=== PATIENT | female | born 1990 | race Two or more races ===

== ENCOUNTER 2020-05-18 13:48 | Emergency (ER) | payer OTHER ==
[~2020-05-18] VITALS: Ht 157.5 cm; Wt 64.0 kg
[2020-05-18 15:36] LABS: BILIRUBIN,URINE NEGATIVE (NEG); CLARITY,URINE CLEAR; COLOR,URINE YELLOW; NITRITE,URINE NEGATIVE (NEG); PROTEIN,URINE NEGATIVE (NEG-TRACE); UROBILINOGEN,URINE 0.2 mg/dL (0.2 mg/dL)
[2020-05-18 15:42] LABS: BARBITURATES NEG (NEG); BENZODIAZEPINES NEG (NEG); CANNABINOIDS NEG (NEG); COCAINE NEG (NEG); METHADONE NEG (NEG); OPIATES NEG (NEG); PHENCYCLIDINE NEG (NEG)
[2020-05-18 15:46] LABS: AMPHETAMINE/METHAMPHETAMINE NEG (NEG)
[2020-05-18 15:52] LABS: BACTERIA,URINE FEW /HPF (0-FEW); WBC,URINE 0 /HPF (0-4)
[2020-05-18 15:58] LABS: BASO % 1 % (0-3); EOS # 0.2 x10^3/uL (0.0-0.7); EOS % 3 % (0-3); HEMATOCRIT 42.4 % (36.0-47.0); HEMOGLOBIN 14.1 g/dL (12.0-15.5); LYMPH # 1.4 x10^3/uL (1.0-4.8); LYMPH % 14 % (24-48); MEAN CORPUSCULAR HEMOGLOBIN 29 pg (25-35); MEAN CORPUSCULAR HGB CONC 33 g/dL (31-37); MEAN CORPUSCULAR VOLUME 86 fL (79-100); MONO # 0.6 x10^3/uL (0.0-1.1); MONO % 6 % (0-9); NEUT # 7.3 x10^3/uL (1.8-7.7); NEUT % 77 % (31-73); PLATELET COUNT 329 x10^3/uL (140-400); RED BLOOD COUNT 4.91 x10^6/uL (3.50-5.40); RED CELL DISTRIBUTION WIDTH 13.6 % (11.5-14.5); WHITE BLOOD COUNT 9.5 x10^3/uL (4.0-11.0)
--- NOTE | 2020-05-18 16:03 | RAD ---
COMPLETE ABDOMINAL ULTRASOUND Clinical History: Reason: abd pain / Spl. Instructions: / History: Comparison: None. Technique: Sonographic examination of the abdomen was performed and multiple grayscale and color Doppler static images were obtained. Findings: Most of the liver is visualized and is homogeneous. The liver measures 15.3 cm. Ultrasound is not sensitive for detecting solid liver lesions. Portal flow is hepatopetal. The common bile duct is normal in caliber, measuring 2 mm in diameter. The gallbladder wall is normal. Gallbladder is contracted due to short nothing by mouth status. Per report, sonographic Clark sign is negative. There is no cholelithiasis or pericholecystic fluid. The visualized pancreas is homogeneous. The right kidney is normal in echotexture and measures 9.6 cm. The left kidney is normal in echotexture and measures 11 cm. Corticomedullary differentiation is preserved. There is no hydronephrosis. The spleen is not enlarged, measuring 10.3 cm. Visualized portions of the abdominal aorta and IVC are normal. IMPRESSION: There is no acute abdominal abnormality identified sonographically. Electronically signed by: Rahat Velazco MD (05/18/2020 4:00 PM) [facility]
[2020-05-18 16:15] LABS: CALCIUM 8.8 mg/dL (8.5-10.1); CREATININE 0.7 mg/dL (0.6-1.0); GFR 98.9; POTASSIUM 3.7 mmol/L (3.5-5.1)
[2020-05-18 16:19] LABS: ALBUMIN 3.3 g/dL (3.4-5.0); ALBUMIN/GLOBULIN RATIO 0.9 (1.0-1.7); TOTAL BILIRUBIN 0.2 mg/dL (0.2-1.0)
[2020-05-18] MEDS ORDERED: IV NORMAL SALINE 1000ML BAG 1,000 ML IV ONE (17:00)
[2020-05-18] MEDS ORDERED: FAMOTIDINE 20 MG/2 ML VIAL IVP ONE (17:00)
[2020-05-18] MEDS ORDERED: ONDANSETRON PF 4 MG/2 ML VIAL. IVP ONE (17:00)
[2020-05-18 17:16] VITALS: BP 108/58
[2020-05-18] MEDS ORDERED: FAMO20TA5 PO (17:39)
--- NOTE | 2020-05-18 17:39 | PHYS DOC ---
Past Medical History Past Medical History: No Pertinent History Past Surgical History: Smoking Status: Never Smoker Alcohol Use: Occasionally General Adult EDM: Chief Complaint: ABDOMINAL PAIN HPI: HPI: Patient is a 29 year old Malawian-speaking female presenting to the ED today complaining of 8 out of 10 epigastric abdominal pain described as burning/sharp, symptoms for 2 weeks worse on eating. Denies anything alleviating the pain. States the symptoms are intermittent. She states she took Pepto-Bismol last night and had black stool today. Denies being on any blood thinners. Crop Supervisor line was used for [place]ian Review of Systems: Review of Systems: Constitutional: Denies fever or chills. [] Eyes: Denies change in visual acuity. [] HENT: Denies nasal congestion or sore throat. [] Respiratory: Denies cough or shortness of breath. [] Cardiovascular: Denies chest pain or edema. [] GI: Reports epigastric abdominal pain, black stools after taking Pepto-Bismol, denies nausea, vomiting, bloody stools or diarrhea. [] : Denies dysuria. [] Musculoskeletal: Denies back pain or joint pain. [] Integument: Denies rash. [] Neurologic: Denies headache, focal weakness or sensory changes. [] Psychiatric: Denies depression or anxiety. [] Heart Score: Risk Factors: Risk Factors: DM, Current or recent (<one month) smoker, HTN, HLP, family history of CAD, obesity. Risk Scores: Score 0 - 3: 2.5% MACE over next 6 weeks - Discharge Home Score 4 - 6: 20.3% MACE over next 6 weeks - Admit for Clinical Observation Score 7 - 10: 72.7% MACE over next 6 weeks - Early Invasive Strategies Current Medications: Current Medications Medications (Trade) Dose Ordered Sig/Génesis Start Time Stop Time Status Last Admin Dose Admin Famotidine (Pepcid Vial) 20 mg 1X ONCE 05/18/20 17:00 05/18/20 17:01 DC Ondansetron HCl (Zofran) 4 mg 1X ONCE 05/18/20 17:00 05/18/20 17:01 DC Sodium Chloride 1,000 ml @ 1,000 mls/hr 1X ONCE 05/18/20 17:00 05/18/20 17:59 Allergies: Allergies: Allergies Coded Allergies Type Severity Reaction Last Updated Verified No Known Drug Allergies 05/18/20 No Physical Exam: PE: Constitutional: Well developed, well nourished, no acute distress, non-toxic appearance. [] HENT: Normocephalic, atraumatic, bilateral external ears normal, oropharynx moist, no oral exudates, nose normal. [] Eyes: PERRLA, EOMI, conjunctiva normal, no discharge. [] Neck: Normal range of motion, no tenderness, supple, no stridor. [] Cardiovascular:Heart rate regular rhythm, no murmur [] Lungs & Thorax: Bilateral breath sounds clear to auscultation [] Abdomen: Bowel sounds normal, soft, no tenderness, no masses, no pulsatile masses. [] Skin: Warm, dry, no erythema, no rash. [] Back: No tenderness, no CVA tenderness. [] Extremities: No tenderness, no cyanosis, no clubbing, ROM intact, no edema. [] Neurologic: Alert and oriented X 3, normal motor function, normal sensory function, no focal deficits noted. [] Psychologic: Affect normal, judgement normal, mood normal. [] Current Patient Data: Labs: Laboratory Tests Test 05/18/20 14:00 05/18/20 14:06 05/18/20 15:40 Urine Collection Type Unknown Urine Color Yellow Urine Clarity Clear Urine pH 6.0 (<5.0-8.0) Urine Specific [place] 1.015 (1.000-1.030) Urine Protein Negative mg/dL (NEG-TRACE) Urine Glucose (UA) Negative mg/dL (NEG) Urine Ketones (Stick) Negative mg/dL (NEG) Urine Blood Small (NEG) Urine Nitrite Negative (NEG) Urine Bilirubin Negative (NEG) Urine Urobilinogen Dipstick 0.2 mg/dL (0.2 mg/dL) Urine Leukocyte Esterase Negative (NEG) Urine RBC 1-2 /HPF (0-2) Urine WBC 0 /HPF (0-4) Urine Squamous Epithelial Cells Few /LPF Urine Bacteria Few /HPF (0-FEW) Urine Mucus Slight /LPF Urine Opiates Screen Neg (NEG) Urine Methadone Screen Neg (NEG) Urine Barbiturates Neg (NEG) Urine Phencyclidine Screen Neg (NEG) Urine Amphetamine/Methamphetamine Neg (NEG) Urine Benzodiazepines Screen Neg (NEG) Urine Cocaine Screen Neg (NEG) Urine Cannabinoids Screen Neg (NEG) Urine Ethyl Alcohol Neg (NEG) POC Urine HCG, Qualitative Hcg negative (Negative) White Blood Count 9.5 x10^3/uL (4.0-11.0) Red Blood Count 4.91 x10^6/uL (3.50-5.40) Hemoglobin 14.1 g/dL (12.0-15.5) Hematocrit 42.4 % (36.0-47.0) Mean Corpuscular Volume 86 fL (79-100) Mean Corpuscular Hemoglobin 29 pg (25-35) Mean Corpuscular Hemoglobin Concent 33 g/dL (31-37) Red Cell Distribution Width 13.6 % (11.5-14.5) Platelet Count 329 x10^3/uL (140-400) Neutrophils (%) (Auto) 77 % (31-73) H Lymphocytes (%) (Auto) 14 % (24-48) L Monocytes (%) (Auto) 6 % (0-9) Eosinophils (%) (Auto) 3 % (0-3) Basophils (%) (Auto) 1 % (0-3) Neutrophils # (Auto) 7.3 x10^3/uL (1.8-7.7) Lymphocytes # (Auto) 1.4 x10^3/uL (1.0-4.8) Monocytes # (Auto) 0.6 x10^3/uL (0.0-1.1) Eosinophils # (Auto) 0.2 x10^3/uL (0.0-0.7) Basophils # (Auto) 0.0 x10^3/uL (0.0-0.2) Sodium Level 140 mmol/L (136-145) Potassium Level 3.7 mmol/L (3.5-5.1) Chloride Level 104 mmol/L (98-107) Carbon Dioxide Level 30 mmol/L (21-32) Anion Gap 6 (6-14) Blood Urea Nitrogen 8 mg/dL (7-20) Creatinine 0.7 mg/dL (0.6-1.0) Estimated GFR (Cockcroft-Gault) 98.9 BUN/Creatinine Ratio 11 (6-20) Glucose Level 104 mg/dL (70-99) H Calcium Level 8.8 mg/dL (8.5-10.1) Total Bilirubin 0.2 mg/dL (0.2-1.0) Aspartate Amino Transferase (AST) 15 U/L (15-37) Alanine Aminotransferase (ALT) 22 U/L (14-59) Alkaline Phosphatase 82 U/L (46-116) Total Protein 7.0 g/dL (6.4-8.2) Albumin 3.3 g/dL (3.4-5.0) L Albumin/Globulin Ratio 0.9 (1.0-1.7) L Lipase 118 U/L (73-393) Ethyl Alcohol Level < 10 mg/dL (0-10) Laboratory Tests 05/18/20 15:40 Laboratory Tests 05/18/20 15:40 Vital Signs: Vital Signs Date Time Temp Pulse Resp B/P (MAP) Pulse Ox O2 Delivery O2 Flow Rate FiO2 05/18/20 14:53 98.5 84 15 100/63 (75) 99 Room Air 98.5 EKG: EKG: [] Radiology/Procedures: Radiology/Procedures: []PROCEDURE: ABDOMEN COMPLETE COMPLETE ABDOMINAL ULTRASOUND Clinical History: Reason: abd pain / Spl. Instructions: / History: Comparison: None. Technique: Sonographic examination of the abdomen was performed and multiple grayscale and color Doppler static images were obtained. Findings: Most of the liver is visualized and is homogeneous. The liver measures 15.3 cm. Ultrasound is not sensitive for detecting solid liver lesions. Portal flow is hepatopetal. The common bile duct is normal in caliber, measuring 2 mm in diameter. The gallbladder wall is normal. Gallbladder is contracted due to short nothing by mouth status. Per report, sonographic Clark sign is negative. There is no cholelithiasis or pericholecystic fluid. The visualized pancreas is homogeneous. The right kidney is normal in echotexture and measures 9.6 cm. The left kidney is normal in echotexture and measures 11 cm. Corticomedullary differentiation is preserved. There is no hydronephrosis. The spleen is not enlarged, measuring 10.3 cm. Visualized portions of the abdominal aorta and IVC are normal. IMPRESSION: There is no acute abdominal abnormality identified sonographically. Electronically signed by: Rahat Velazco MD (05/18/2020 4:00 PM) [facility] DICTATED and SIGNED BY: RAHAT VELAZCO MD DATE: 05/18/20 [id number] 0 Course & Med Decision Making: Course & Med Decision Making Pertinent Labs and Imaging studies reviewed. (See chart for details) This is a 29-year-old female patient presenting to the ED today with epigastric abdominal pain for 2 weeks, negative urine hCG, UA negative for any acute findings, CBC CMP lipase with no acute findings, abdominal ultrasound is negative. Highly suspect she has acid reflux. Recommended Pepcid, prescription given. Follow-up with PCP in 1 to 2 weeks. Brianne Disclaimer: Dragyahaira Disclaimer: This electronic medical record was generated, in whole or in part, using a voice recognition dictation system. Departure Departure Impression: Primary Impression: GERD (gastroesophageal reflux disease) Qualified Codes: K21.9 - Gastro-esophageal reflux disease without esophagitis Disposition: 01 DC HOME SELF CARE/HOMELESS Condition: STABLE Referrals: NO PCP (PCP) ANGELA REICO MD follow up in one week Patient Instructions: Diet for Gastroesophageal Reflux Disease, Child, Gastroesophageal Reflux Disease, Adult Additional Instructions: You were evaluated in the emergency room for abdominal pain, your ultrasound was negative for any acute findings, your lab work was negative. You could have acid reflux, avoid eating greasy fatty foods, avoid spicy foods. Take the prescribed medication as ordered. Follow-up with the provided doctor in 1 to 2 weeks Scripts Famotidine (FAMOTIDINE) 20 Mg Tablet 20 MG PO DAILY, #30 TAB Prov: MIRACLE ROLON APRN 05/18/20 MIRACLE ROLON APRN May 18, 2020 17:39
== END 2020-05-18 17:42 | disposition home or self-care (01) ==
LOC: ER 13:48
DX: K21.9 Gastro-esophageal reflux disease without esophagitis (principal); R10.13 Epigastric pain; R20.8 Other disturbances of skin sensation; R19.5 Other fecal abnormalities; Z98.890 Other specified postprocedural states
CPT/HCPCS: 36415; 76700; 80053; 80307; 81001; 81025; 83690; 85025; 99284; G0480

== ENCOUNTER 2021-06-13 11:27 | Emergency (ER) | payer SELFPAY ==
[~2021-06-13] VITALS: Ht 157.5 cm; Wt 56.2 kg
[~2021-06-13 11:27] MED LIST: FAMO20TA5 PO
[2021-06-13 12:12] LABS: BILIRUBIN,URINE NEGATIVE (NEG); CLARITY,URINE CLOUDY; COLOR,URINE YELLOW; NITRITE,URINE NEGATIVE (NEG); PH,URINE 5.5 (<5.0-8.0); PROTEIN,URINE NEGATIVE (NEG-TRACE); UROBILINOGEN,URINE 0.2 mg/dL (0.2 mg/dL)
[2021-06-13 12:26] LABS: BACTERIA,URINE FEW /HPF (0-FEW); RBC,URINE TNTC /HPF (0-2)
[2021-06-13 12:29] LABS: BASO % 0 % (0-3); EOS # 0.3 x10^3/uL (0.0-0.7); EOS % 4 % (0-3); HEMOGLOBIN 13.3 g/dL (12.0-15.5); LYMPH # 1.3 x10^3/uL (1.0-4.8); LYMPH % 18 % (24-48); MEAN CORPUSCULAR HEMOGLOBIN 28 pg (25-35); MEAN CORPUSCULAR HGB CONC 33 g/dL (31-37); MEAN CORPUSCULAR VOLUME 84 fL (79-100); MONO # 0.6 x10^3/uL (0.0-1.1); MONO % 8 % (0-9); NEUT # 5.3 x10^3/uL (1.8-7.7); NEUT % 70 % (31-73); PLATELET COUNT 319 x10^3/uL (140-400); RED BLOOD COUNT 4.74 x10^6/uL (3.50-5.40); RED CELL DISTRIBUTION WIDTH 13.8 % (11.5-14.5); WHITE BLOOD COUNT 7.6 x10^3/uL (4.0-11.0)
[2021-06-13 12:36] LABS: CALCIUM 8.4 mg/dL (8.5-10.1); CREATININE 0.6 mg/dL (0.6-1.0); GFR 117.4; POTASSIUM 3.8 mmol/L (3.5-5.1)
--- NOTE | 2021-06-13 16:29 | PHYS DOC ---
Past Medical History Past Medical History: No Pertinent History Past Surgical History: No Surgical History, Smoking Status: Never Smoker Alcohol Use: None General Adult EDM: Chief Complaint: VAGINAL BLEEDING HPI: HPI: Patient is a 30-year-old female who presents to the emergency department concerning vaginal bleeding for the past 8 days. Patient reports she had her Mirena removed 2 months ago. Had her first normal menstrual cycle since Mirena removal on April 26, noticed she did not have a menstrual cycle that started on May 26, reported having a positive test on 04 June 2021, patient reported she noticed lower pelvic cramping with vaginal bleeding that started the next day. Patient reports soaking 1 pad each evening and 1 pad each day for the past 8 days. Patient denies nausea, vomiting, diarrhea, denies chest pains, denies recent fever or chills, denies passing blood clots of blood tissue, states this feels like normal menstrual cycle cramping, denies dizzines s, diaphoresis, near syncope or syncopal episodes. Patient denies increased urinary frequency, urinary pressure, urinary burning or other dysuria symptoms, denies rashes or lesions to her vagina, denies STI concerns. Review of Systems: Review of Systems: 14 body systems of review of systems have been reviewed. See HPI for pertinent positives and negative responses, otherwise all other systems are negative, nonpertinent or noncontributory. Constitutional: Negative except as outlined in HPI above. Skin: Negative except as outlined in HPI above. Eyes: Negative except as outlined in HPI above. HENT: Negative except as outlined in HPI above. Respiratory: Negative except as outlined in HPI above. Cardiovascular: Negative except as outlined in HPI above. GI: Negative except as outlined in HPI above. : Negative except as outlined in HPI above. Musculoskeletal: Negative except as outlined in HPI above. Integument: Negative except as outlined in HPI above. Neurologic: Negative except as outlined in HPI above. Endocrine: Negative except as outlined in HPI above. Lymphatic: Negative except as outlined in HPI above. Psychiatric: Negative except as outlined in HPI above. Heart Score: C/O Chest Pain: No Risk Factors: Risk Factors: DM, Current or recent (<one month) smoker, HTN, HLP, family history of CAD, obesity. Risk Scores: Score 0 - 3: 2.5% MACE over next 6 weeks - Discharge Home Score 4 - 6: 20.3% MACE over next 6 weeks - Admit for Clinical Observation Score 7 - 10: 72.7% MACE over next 6 weeks - Early Invasive Strategies Allergies: Allergies: Allergies Coded Allergies Type Severity Reaction Last Updated Verified No Known Drug Allergies 06/13/21 No Physical Exam: PE: Constitutional: Well developed, well nourished, no acute distress, non-toxic appearance. 30-year-old female in no apparent distress. HENT: Normocephalic, atraumatic. Eyes: Conjunctiva normal, no discharge. Neck: Normal range of motion. Cardiovascular: Distal cap refill less than 2 seconds, no cyanosis appreciated. Lungs & Thorax: Patient is in no respiratory distress, no adventitious lung sounds appreciated. Abdomen: Bowel sounds normal, soft, no tenderness, no masses, no pulsatile masses. No bruising or skin discoloration of the abdomen. Skin: Warm, dry, no erythema, no rash. Back: No tenderness, no CVA tenderness. Extremities: No tenderness, no cyanosis, no clubbing, ROM intact, no edema. Neurologic: Alert and oriented X 3, normal motor function, normal sensory function, no focal deficits noted. Psychologic: Affect normal, judgement normal, mood normal. : Pelvic examination performed with female physician assistant reading teacher at bedside for paper control clerk, no rashes or lesions or abnormalities noted to the external vaginal structures, no blood noted at the vaginal opening, speculum exam noted blood around the cervical os, the cervical os is closed, structures pink, not erythematous, no other discharge appreciated, wet prep/GC/chlamydia swabs ob tained and sent to lab for study. No left or right-sided adnexal pain, no cervical motion tenderness per bimanual exam, patient tolerated well. Current Patient Data: Labs: Laboratory Tests Test 06/13/21 11:40 06/13/21 12:20 Urine Collection Type Void Urine Color Yellow Urine Clarity Cloudy Urine pH 5.5 (<5.0-8.0) Urine Specific [place] 1.020 (1.000-1.030) Urine Protein Negative mg/dL (NEG-TRACE) Urine Glucose (UA) Negative mg/dL (NEG) Urine Ketones (Stick) Negative mg/dL (NEG) Urine Blood Large (NEG) Urine Nitrite Negative (NEG) Urine Bilirubin Negative (NEG) Urine Urobilinogen Dipstick 0.2 mg/dL (0.2 mg/dL) Urine Leukocyte Esterase Small (NEG) Urine RBC Tntc /HPF (0-2) Urine WBC 1-4 /HPF (0-4) Urine Squamous Epithelial Cells Mod /LPF Urine Bacteria Few /HPF (0-FEW) Urine Mucus Mod /LPF White Blood Count 7.6 x10^3/uL (4.0-11.0) Red Blood Count 4.74 x10^6/uL (3.50-5.40) Hemoglobin 13.3 g/dL (12.0-15.5) Hematocrit 40.0 % (36.0-47.0) Mean Corpuscular Volume 84 fL (79-100) Mean Corpuscular Hemoglobin 28 pg (25-35) Mean Corpuscular Hemoglobin Concent 33 g/dL (31-37) Red Cell Distribution Width 13.8 % (11.5-14.5) Platelet Count 319 x10^3/uL (140-400) Neutrophils (%) (Auto) 70 % (31-73) Lymphocytes (%) (Auto) 18 % (24-48) L Monocytes (%) (Auto) 8 % (0-9) Eosinophils (%) (Auto) 4 % (0-3) H Basophils (%) (Auto) 0 % (0-3) Neutrophils # (Auto) 5.3 x10^3/uL (1.8-7.7) Lymphocytes # (Auto) 1.3 x10^3/uL (1.0-4.8) Monocytes # (Auto) 0.6 x10^3/uL (0.0-1.1) Eosinophils # (Auto) 0.3 x10^3/uL (0.0-0.7) Basophils # (Auto) 0.0 x10^3/uL (0.0-0.2) Maternal Serum HCG Beta Subunit 3 mIU/mL (0-5) Sodium Level 141 mmol/L (136-145) Potassium Level 3.8 mmol/L (3.5-5.1) Chloride Level 105 mmol/L (98-107) Carbon Dioxide Level 28 mmol/L (21-32) Anion Gap 8 (6-14) Blood Urea Nitrogen 7 mg/dL (7-20) Creatinine 0.6 mg/dL (0.6-1.0) Estimated GFR (Cockcroft-Gault) 117.4 Glucose Level 89 mg/dL (70-99) Calcium Level 8.4 mg/dL (8.5-10.1) L Laboratory Tests 06/13/21 12:20 Laboratory Tests 06/13/21 12:20 Microbiology 06/13/21 Wet Prep - Final, Complete Vital Signs: Vital Signs Date Time Temp Pulse Resp B/P (MAP) Pulse Ox O2 Delivery O2 Flow Rate FiO2 06/13/21 13:00 72 18 121/84 (96) 100 Room Air 06/13/21 11:50 98.9 98.9 EKG: EKG: [] Radiology/Procedures: Radiology/Procedures: [] Course & Med Decision Making: Course & Med Decision Making Pertinent Labs and Imaging studies reviewed. (See chart for details) 30-year-old female, vital signs reviewed, resents emerged from concerning vaginal bleeding with reported . Physical examination consistent with menstrual cycle bleeding. Will order urinalysis assay, beta hCG quant, CBC, BMP, wet prep, gonorrhea/chlamydia testing, pelvic examination. Patient's beta hCG equals 3. CBC, BMP, wet prep unremarkable, GC/chlamydia pending, low likelihood of STI, will defer treatment at this time, called and discussed patient case and ED work-up with OB specialist Dr. Benavidez who recommended no further treatment, may DC to home with follow-up in his office this coming week. Discussed with patient recommendations for Dr. Benavidez, will give information for follow-up, discussed return to ER precautions and concerns, patient gave verbal understanding of and is amenable to ED discharge planning. Dragyahaira Disclaimer: Dragyahaira Disclaimer: This electronic medical record was generated, in whole or in part, using a voice recognition dictation system. Departure Departure Impression: Primary Impression: Abnormal uterine bleeding Disposition: HOME / SELF CARE / HOMELESS Condition: GOOD Referrals: NO PCP (PCP) SHAYNE BENAVIDEZ MD Patient Instructions: Abnormal Uterine Bleeding Additional Instructions: Hoy la atendieron en el departamento de emergencias por sangrado vaginal. No estas embarazada Contine usando toallas femeninas para el sangrado vaginal. Habl con un especialista en obstetricia, el Dr. Benavidez, quien le recomienda que programe judi carlton y lo sandy en nelson consultorio la semana que viene. He proporcionado nelson informacin de contacto en maura documento. Llame el para concertar judi carlton. Regrese al departamento de emergencias si los sntomas empeoran u otras inquietudes. Yamilka por visitar nuestro Departamento de Emergencias. Fue un placer atenderlo hoy en el departamento de emergencias y le agradecemos que nos haya confiado nelson atencin. Si surge algn problema adicional, no dude en volver a visitarnos. Nahomi un seguimiento con nelson proveedor de atencin primaria para que puedan planificar atencin adicional si es necesario y conocer el problema que tuvo. Si los sntomas empeoran, regrese al Departamento de Emergencias. Cualquier sntoma preocupante que comience, bindu dolor en el pecho, falta de aire, debilidad o entumecimiento en un lado del cuerpo, fiebre meryl o cualquier otro sntoma preocupante, regresa a la renetta de emergencias. You were seen today in the emergency department for vaginal bleeding. You are not . Please continue to use feminine pads for vaginal bleeding. I have spoken to a OB specialist Dr. Benavidez who recommends you make an appointment and see him in his office this coming week. I have provided his contact information on this document, please call Monday for an appointment. Return to the emergency department for worsening symptoms or other concerns. Thank you for visiting our Emergency Department. It was a pleasure taking care of you today in the emergency department and we appreciate you trusting us with your care. If any additional problems come up don't hesitate to return to visit us. Please follow up with your primary care provider so they can plan additional care if needed and know about the problem that you had. If symptoms worsen come back to the Emergency Department. Any concerning symptoms that start such as chest pain, shortness of air, weakness or numbness on one side of the body, running high fevers or any other concerning symptoms return to the ER. SHAYNE ROD APRN Jun 13, 2021 16:29
[2021-06-13 16:36] VITALS: BP 118/59
[2021-06-15 20:09] LABS: GC PROBE Negative (Negative)
== END 2021-06-13 16:42 | disposition home or self-care (01) ==
LOC: ER 11:27
DX: N93.9 Abnormal uterine and vaginal bleeding, unspecified (principal)
CPT/HCPCS: 80048; 81001; 84702; 85025; 87086; 87491; 87591; 99285; Q0111